=== PATIENT | female | born 1970 | race Caucasian/White ===

== ENCOUNTER 2017-07-08 21:35 | Emergency (ER) | payer OTHER ==
[2017-07-08] MEDS ORDERED: Labetalol 20 MG/4 ML Syringe IVPUSH ONE (22:00)
[2017-07-08] MEDS ORDERED: Potassium Chloride 20 MEQ Tab.ER PO ONE (22:44)
[2017-07-08] MEDS ORDERED: Aspirin 81 MG Tab.Chew PO ONE (22:47)
[2017-07-08] MEDS ORDERED: Metoprolol Tartrate 25 MG Tab PO ONE (22:47)
[2017-07-08] MEDS ORDERED: Magnesium Chloride 64 MG Tab.ER PO STA (22:58)
--- NOTE | 2017-07-08 23:12 | EDM.PDOC ---
ED HPI GENERAL MEDICAL PROBLEM - General Chief Complaint: Chest Pain Stated Complaint: CHEST PAIN Time Seen by Provider: 07/08/17 21:35 Source of Information: Reports: Patient, Family History Limitations: Reports: No Limitations - History of Present Illness INITIAL COMMENTS - FREE TEXT/NARRATIVE: 46 y.o.w.f -smoker- with a h/o HTN, came to the ed du eto off and on C/P for several hours, lasting a sec or so only. No excessive sweating, no N/V/D, dizziness lightheaded ness etc. Pt had similar symptoms in the past when her potassium was low. She takes currently metoprolol and HCTZ for her HTN. No other acute medical Issues at this time. BP 161/85 Pulse 105 RR 18 Temp 36.9 O2 sat 98% on RA. Pt has no C/P since she arrived here in the ed. Onset Date: 07/08/17 Onset Time: 07:00 Duration: Hour(s):, Intermittent (lasting seconds) Location: Reports: Chest Quality: Reports: Ache, Dull Severity: Mild Improves with: Reports: None Worsens with: Reports: None Context: Reports: Other Associated Symptoms: Reports: No Other Symptoms - Related Data Allergies Allergy/AdvReac Type Severity Reaction Status Date / Time ceftriaxone sodium Allergy Burning Verified 07/08/17 23:17 [From Rocephin] codeine Allergy Burning Verified 07/08/17 23:17 lisinopril Allergy Redness Verified 07/08/17 23:17 losartan [Losartan] Allergy Cannot Verified 07/08/17 23:17 Remember tramadol Allergy Lethargy Verified 07/08/17 23:17 Home Meds: Home Meds Cyanocobalamin (Vitamin B12) [Vitamin B12] 1,000 mcg PO DAILY 07/08/17 [History] Metoprolol Succinate [Toprol XL 50mg] 50 mg PO DAILY 07/08/17 [History] Omeprazole 20 mg PO DAILY 07/08/17 [History] Magnesium Chloride [Slow-Mag] 71.5 mg PO DAILY #3 tablet. 07/09/17 [Rx] Past Medical History HEENT History: Reports: Impaired Vision Cardiovascular History: Reports: Arrhythmia, Hypertension Respiratory History: Reports: Bronchitis, Recurrent Gastrointestinal History: Reports: Chronic Constipation, Colon Polyp, GERD, Hemorrhoids, Irritable Bowel Syndrome, Other (See Below) Other Gastrointestinal History: ANAL FISSURE RECENTLY TREATED CONSERVATIVELY FIBER PICKER History: Reports: Musculoskeletal History: Reports: Back Pain, Chronic Other Musculoskeletal History: HERNIATED DISC IN BACK BUT NEVER HAD ANY SURGERY Neurological History: Reports: Migraines Psychiatric History: Reports: None Endocrine/Metabolic History: Reports: None Hematologic History: Reports: Anemia Other Hematologic History: A YOUNG PERSON HAD ISSUES WITH ANEMIA Dermatologic History: Reports: None - Infectious Disease History Infectious Disease History: Reports: Chicken Pox, Herpes - Past Surgical History Cardiovascular Surgical History: Reports: None Female Surgical History: Reports: D&C, Hysterectomy Neurological Surgical History: Reports: None Social & Family History - Family History Family Medical History: Noncontributory - Tobacco Use Smoking Status *Q: Current Every Day Smoker Years of Tobacco use: 34 Packs/Tins Daily: 1 - Caffeine Use Caffeine Use: Reports: Soda - Recreational Drug Use Recreational Drug Use: No - Living Situation & Occupation Living situation: Reports: Occupation: Employed ED ROS GENERAL - Review of Systems Review Of Systems: See Below Constitutional: Reports: No Symptoms HEENT: Reports: No Symptoms Respiratory: Reports: No Symptoms Cardiovascular: Reports: Chest Pain Endocrine: Reports: No Symptoms GI/Abdominal: Reports: No Symptoms : Reports: No Symptoms Musculoskeletal: Reports: No Symptoms Skin: Reports: No Symptoms Neurological: Reports: No Symptoms Psychiatric: Reports: No Symptoms Hematologic/Lymphatic: Reports: No Symptoms Immunologic: Reports: No Symptoms ED EXAM, GENERAL - Physical Exam Exam: See Below Exam Limited By: No Limitations General Appearance: Alert, WD/WN, No Apparent Distress Eye Exam: Bilateral Eye: Normal Inspection Ears: Normal External Exam Ear Exam: Bilateral Ear: Auricle Normal Nose: Normal Inspection, Normal Mucosa Throat/Mouth: Normal Inspection, Normal Lips Head: Atraumatic, Normocephalic Neck: Normal Inspection, Supple, Non-Tender Respiratory/Chest: No Respiratory Distress, Lungs Clear Cardiovascular: Normal Peripheral Pulses, Regular Rate, Rhythm, No Edema, No Gallop, No JVD, No Murmur Peripheral Pulses: 1+: Brachial (R) GI/Abdominal: Normal Bowel Sounds, Soft, Non-Tender (Female) Exam: Deferred Rectal (Female) Exam: Deferred Back Exam: Normal Inspection, Full Range of Motion Extremities: Normal Inspection, Normal Range of Motion, Non-Tender Neurological: Alert, Oriented, CN II-XII Intact, Normal Cognition, Normal Gait Psychiatric: Normal Affect, Normal Mood Skin Exam: Warm, Dry, Intact, Normal Color, No Rash Lymphatic: No Adenopathy EKG INTERPRETATION EKG Date: 07/08/17 Time: 21:40 Rhythm: NSR Rate (Beats/Min): 104 [place]: Normal P-Wave: Present QRS: Normal ST-T: Depressed (1 mm lat leads) QT: Normal Comparison: NA - No Prior EKG Course - Vital Signs Text/Narrative:: 46 y.o.w.f -smoker- with a h/o HTN, came to the ed du eto off and on C/P for several hours, lasting a sec or so only. No excessive sweating, no N/V/D, dizziness lightheaded ness etc. Pt had similar symptoms in the past when her potassium was low. She takes currently metoprolol and HCTZ for her HTN. No other acute medical Issues at this time. BP 161/85 Pulse 105 RR 18 Temp 36.9 O2 sat 98% on RA. Pt has no C/P since she arrived here in the ed. PE: WNWD W F in NAD, no Pain Labs:Ka was 3.2 Mg was 1.7 Cardiac enzymes were neg, GFR 59 BUN 7 Cr.1.0 Imaging: CXR was done in Apr 2017 and was neg as per patient Hx Impression: Hypokalemia and hypomagnesia Tx: ASA, Mg and potassium Reexam: Pt remained chestpain free while here in the ed, Pt improved spontaneously to 139/87 Plan: D/C with instruction Last Recorded V/S: Last Vital Signs Temp 36.8 C 07/08/17 21:35 Pulse 87 07/08/17 23:30 Resp 19 07/08/17 23:30 BP 145/89 H 07/08/17 23:30 Pulse Ox 99 07/08/17 23:30 - Orders/Labs/Meds Labs: Laboratory Tests 07/08/17 07/08/17 07/08/17 Range/Units 22:10 22:15 22:15 WBC 8.0 (4.5-12.0) X10-3/uL RBC 4.19 (3.23-5.20) x10(6)uL Hgb 13.5 (11.5-15.5) g/dL Hct 39.0 (30.0-51.3) % MCV 93.1 (80-96) fL MCH 32.2 (27.7-33.6) pg MCHC 34.6 (32.2-35.4) g/dL RDW 12.4 (11.5-15.5) % Plt Count 155 (125-369) X10(3)uL MPV 9.7 (7.4-10.4) fL Neut % (Auto) 68.0 (46-82) % Lymph % (Auto) 24.0 (13-37) % Dickens % (Auto) 4.7 (4-12) % Eos % (Auto) 3 (1.0-5.0) % Baso % (Auto) 0 (0-2) % Neut # (Auto) 5.5 (1.6-8.3) # Lymph # (Auto) 1.9 (0.6-5.0) # Dickens # (Auto) 0.4 (0.0-1.3) # Eos # (Auto) 0.2 (0.0-0.8) # Baso # (Auto) 0.0 (0.0-0.2) # PT 10.5 (8.7-11.1) INR 1.04 (0.89-1.13) Sodium (135-145) mmol/L Potassium (3.5-5.3) mmol/L Chloride (100-110) mmol/L Carbon Dioxide (21-32) mmol/L BUN (7-18) mg/dL Creatinine (0.55-1.02) mg/dL Est Cr Clr Drug Dosing Estimated GFR (MDRD) (>60) BUN/Creatinine Ratio (9-20) Glucose (80-116) mg/dL Calcium (8.6-10.2) mg/dL Magnesium 1.7 L (1.8-2.5) mg/dL Creatine Kinase (60-160) IU/L Troponin I (<0.017-0.056) ng/mL 07/08/17 07/08/17 Range/Units 22:15 22:15 WBC (4.5-12.0) X10-3/uL RBC (3.23-5.20) x10(6)uL Hgb (11.5-15.5) g/dL Hct (30.0-51.3) % MCV (80-96) fL MCH (27.7-33.6) pg MCHC (32.2-35.4) g/dL RDW (11.5-15.5) % Plt Count (125-369) X10(3)uL MPV (7.4-10.4) fL Neut % (Auto) (46-82) % Lymph % (Auto) (13-37) % Dickens % (Auto) (4-12) % Eos % (Auto) (1.0-5.0) % Baso % (Auto) (0-2) % Neut # (Auto) (1.6-8.3) # Lymph # (Auto) (0.6-5.0) # Dickens # (Auto) (0.0-1.3) # Eos # (Auto) (0.0-0.8) # Baso # (Auto) (0.0-0.2) # PT (8.7-11.1) INR (0.89-1.13) Sodium 142 (135-145) mmol/L Potassium 3.2 L (3.5-5.3) mmol/L Chloride 106 (100-110) mmol/L Carbon Dioxide 25 (21-32) mmol/L BUN 7 (7-18) mg/dL Creatinine 1.0 (0.55-1.02) mg/dL Est Cr Clr Drug Dosing TNP Estimated GFR (MDRD) 59 L (>60) BUN/Creatinine Ratio 7.0 L (9-20) Glucose 200 H (80-116) mg/dL Calcium 9.5 (8.6-10.2) mg/dL Magnesium (1.8-2.5) mg/dL Creatine Kinase 163 H (60-160) IU/L Troponin I < 0.017 L (<0.017-0.056) ng/mL Meds: Medications Discontinued Medications Generic Name Dose Route Start Last Admin Trade Name Freq PRN Reason Stop Dose Admin Aspirin 324 mg 07/08/17 22:47 07/08/17 21:50 Aspirin PO 07/08/17 22:48 324 mg ONETIME ONE Administration Labetalol HCl 10 mg 07/08/17 22:00 07/08/17 23:17 Normodyne IVPUSH 07/08/17 22:01 Not Given ONETIME ONE Protocol Magnesium Chloride 64 mg 07/08/17 22:58 07/08/17 23:20 Mag-64 PO 07/08/17 22:59 64 mg ONETIME STA Administration Metoprolol Tartrate 25 mg 07/08/17 22:47 07/08/17 22:55 Lopressor PO 07/08/17 22:48 25 mg ONETIME ONE Administration Potassium Chloride 40 meq 07/08/17 22:44 07/08/17 22:55 Klor-Con M20 PO 07/08/17 22:45 40 meq ONETIME ONE Administration Departure - Departure Time of Disposition: 23:13 Disposition: Home, Self-Care 01 Condition: Good Clinical Impression: Hypertension, Hypokalemia, Magnesium deficiency, Atypical chest pain Prescriptions: Magnesium Chloride [Slow-Mag] 71.5 mg PO DAILY #3 tablet. Instructions: Hypomagnesemia, Hypokalemia, Nonspecific Chest Pain Referrals: Sofi Jimenez [employer]MIN[employer] WORKER [Primary Care Provider] - Forms: ED Department Discharge Additional Instructions: Please take 40meq of potassium at 6 am. Please slow mag in next 3 days as recommended. Please f/u with your PMD in next 3 days, check your BP daily, came back to the ed if your symptoms get worse acutely. Please don't pharmacy picking technician the prescription for Losartan because you are allergic to it. Thank you!.
[2017-07-08 23:39] VITALS: BP 145/89
== END 2017-07-08 23:40 | disposition home or self-care (01) ==
LOC: FB.ED 21:35
DX: E87.6 Hypokalemia (principal); E83.42 Hypomagnesemia; R07.89 Other chest pain; I10 Essential (primary) hypertension; F17.210 Nicotine dependence, cigarettes, uncomplicated; Z88.5 Allergy status to narcotic agent; Z88.1 Allergy status to other antibiotic agents; Z88.8 Allergy status to other drugs, medicaments and biological substances; Z79.899 Other long term (current) drug therapy
CPT/HCPCS: 36415; 80048; 82550; 83735; 84484; 85025; 85610; 99284; A9270